=== PATIENT | female | born 1960 | race Native Hawaiian/Other Pacific Islander ===

== ENCOUNTER 2016-12-29 13:26 | Outpatient (CLI) | payer OTHER | END 2016-12-29 19:17 | disposition home or self-care (01) | LOC: RAD 13:26 | DX: M25.511 Pain in right shoulder (principal) ==

== ENCOUNTER 2017-01-15 13:05 | Outpatient (CLI) | payer OTHER | END 2017-01-15 19:12 | disposition home or self-care (01) | LOC: RAD 13:05 | DX: M25.511 Pain in right shoulder (principal) ==

== ENCOUNTER 2017-03-17 18:01 | Emergency (ER) | payer OTHER ==
[~2017-03-17] VITALS: Ht 154.9 cm; Wt 78.9 kg
[2017-03-17 18:11] VITALS: TEMP 97.9
[2017-03-17 20:53] VITALS: BP 132/82
== END 2017-03-17 20:54 | disposition home or self-care (01) ==
LOC: ED 18:01
PROC: 0HQ0XZZ Repair Scalp Skin, External Approach (ICD-10-PCS; principal; 2017-03-17)
DX: S01.01XA Laceration without foreign body of scalp, initial encounter (principal); S09.8XXA Other specified injuries of head, initial encounter; W01.10XA Fall on same level from slipping, tripping and stumbling with subsequent striking against unspecified object, initial encounter; Y92.098 Other place in other non-institutional residence as the place of occurrence of the external cause
CPT/HCPCS: 90715; 96372; 99283

== ENCOUNTER 2017-04-02 14:02 | Outpatient (CLI) | payer OTHER | END 2017-04-02 15:05 | disposition home or self-care (01) | LOC: MRI 14:02 | DX: M48.06 Spinal stenosis, lumbar region (principal); M47.27 Other spondylosis with radiculopathy, lumbosacral region ==

== ENCOUNTER 2017-08-10 16:02 | Outpatient (CLI) | payer OTHER | END 2017-08-10 19:07 | disposition home or self-care (01) | LOC: RAD 16:02 | DX: R07.81 Pleurodynia (principal); M25.511 Pain in right shoulder; M89.8X1 Other specified disorders of bone, shoulder; R07.89 Other chest pain ==

== ENCOUNTER 2017-12-14 10:39 | Outpatient (CLI) | payer OTHER | END 2017-12-14 21:47 | disposition home or self-care (01) | LOC: RAD 10:39 | DX: M25.511 Pain in right shoulder (principal) ==

== ENCOUNTER 2018-02-09 10:39 | Outpatient (CLI) | payer OTHER | END 2018-02-09 18:19 | disposition home or self-care (01) | LOC: MRI 10:39 | DX: M75.121 Complete rotator cuff tear or rupture of right shoulder, not specified as traumatic (principal); M25.511 Pain in right shoulder ==

== ENCOUNTER 2018-08-16 08:20 | Outpatient (CLI) | payer OTHER | END 2018-08-16 22:20 | disposition home or self-care (01) | LOC: MRI 08:20 | DX: M54.12 Radiculopathy, cervical region (principal) ==

== ENCOUNTER 2018-11-16 11:42 | Outpatient (CLI) | payer OTHER | END 2018-11-16 19:26 | disposition home or self-care (01) | LOC: RAD 11:42 | DX: M54.12 Radiculopathy, cervical region (principal) ==

== ENCOUNTER 2019-01-10 16:53 | Outpatient (CLI) | payer OTHER | END 2019-01-10 19:45 | disposition home or self-care (01) | LOC: RAD 16:53 | DX: M47.812 Spondylosis without myelopathy or radiculopathy, cervical region (principal) ==

== ENCOUNTER 2019-11-22 10:34 | Outpatient (CLI) | payer OTHER | END 2019-11-22 19:30 | disposition home or self-care (01) | LOC: MRI 10:34 | DX: M47.812 Spondylosis without myelopathy or radiculopathy, cervical region (principal) ==

== ENCOUNTER 2020-05-07 12:08 | Outpatient (CLI) | payer OTHER | END 2020-05-07 21:29 | disposition home or self-care (01) | LOC: RAD 12:08 | DX: M25.511 Pain in right shoulder (principal) ==

== ENCOUNTER 2020-06-15 10:39 | Outpatient (CLI) | payer OTHER | END 2020-06-15 23:26 | disposition home or self-care (01) | LOC: MRI 10:39 | DX: M25.511 Pain in right shoulder (principal) ==

== ENCOUNTER 2021-06-17 10:29 | Outpatient (CLI) | payer OTHER | END 2021-06-17 20:02 | disposition home or self-care (01) | LOC: RAD 10:29 | PROVIDERS: ATTEND Physician Assistant | DX: M25.511 Pain in right shoulder (principal) ==

== ENCOUNTER 2021-07-29 13:29 | Outpatient (CLI) | payer OTHER | END 2021-07-29 20:26 | disposition home or self-care (01) | LOC: RAD 13:29 | PROVIDERS: ATTEND Physician Assistant | DX: M25.511 Pain in right shoulder (principal) ==

== ENCOUNTER 2021-11-26 13:02 | Outpatient (CLI) | payer OTHER ==
[2021-11-26 13:39] LABS: PLATELET COUNT 175 K/uL (152-353)
[2021-11-26 14:04] LABS: POTASSIUM 3.9 mmol/L (3.6-5.2)
== END 2021-11-26 19:00 | disposition home or self-care (01) ==
LOC: LAB 13:02
PROVIDERS: ATTEND Nurse Practitioner Family
DX: Z00.00 Encounter for general adult medical examination without abnormal findings (principal); Z79.899 Other long term (current) drug therapy; I10 Essential (primary) hypertension; E78.00 Pure hypercholesterolemia, unspecified; R53.83 Other fatigue; M25.50 Pain in unspecified joint; E55.9 Vitamin D deficiency, unspecified
CPT/HCPCS: 80053; 80061; 82306; 84443; 85027; 86038

== ENCOUNTER 2022-02-11 16:44 | Outpatient (CLI) | payer OTHER | END 2022-02-11 19:31 | disposition home or self-care (01) | LOC: LAB 16:44 | PROVIDERS: ATTEND Internal Medicine | DX: N39.0 Urinary tract infection, site not specified (principal) | CPT/HCPCS: 81000; 87077; 87086; 87088; 87186 ==

== ENCOUNTER 2022-05-16 15:18 | Outpatient (CLI) | payer OTHER | END 2022-05-16 21:06 | disposition home or self-care (01) | LOC: LAB 15:18 | PROVIDERS: ATTEND Internal Medicine Endocrinology, Diabetes & Metabolism | DX: L93.0 Discoid lupus erythematosus (principal); R76.8 Other specified abnormal immunological findings in serum | CPT/HCPCS: 36415; 85597; 85598; 85613; 85730; 85732; 86146; 86147; 86148; 86849 ==

== ENCOUNTER 2022-07-10 13:24 | Outpatient (CLI) | payer OTHER | END 2022-07-10 19:17 | disposition home or self-care (01) | LOC: RAD 13:24 | PROVIDERS: ATTEND Nurse Practitioner Family | DX: H16.223 Keratoconjunctivitis sicca, not specified as Sjogren's, bilateral (principal); M06.4 Inflammatory polyarthropathy; R21 Rash and other nonspecific skin eruption; Z68.30 Body mass index [BMI] 30.0-30.9, adult ==

== ENCOUNTER 2022-08-29 08:33 | Outpatient (CLI) | payer OTHER | END 2022-08-29 19:01 | disposition home or self-care (01) | LOC: RAD 08:33 | PROVIDERS: ATTEND Nurse Practitioner Family | DX: H16.223 Keratoconjunctivitis sicca, not specified as Sjogren's, bilateral (principal); M06.4 Inflammatory polyarthropathy; M19.041 Primary osteoarthritis, right hand; M19.042 Primary osteoarthritis, left hand ==

== ENCOUNTER 2022-11-25 08:34 | Outpatient (CLI) | payer OTHER | END 2022-11-25 20:21 | disposition home or self-care (01) | LOC: RAD 08:34 | PROVIDERS: ATTEND Nurse Practitioner Family | DX: E55.9 Vitamin D deficiency, unspecified (principal); M32.8 Other forms of systemic lupus erythematosus; M85.89 Other specified disorders of bone density and structure, multiple sites; Z79.899 Other long term (current) drug therapy ==

== ENCOUNTER 2023-01-19 12:08 | Outpatient (CLI) | payer OTHER | END 2023-01-19 20:41 | LOC: RAD 12:08 | PROVIDERS: ATTEND Internal Medicine Endocrinology, Diabetes & Metabolism | DX: M54.59 Other low back pain (principal); M54.31 Sciatica, right side ==

== ENCOUNTER 2023-01-30 12:15 | Outpatient (CLI) | payer OTHER | END 2023-01-30 19:16 | disposition home or self-care (01) | LOC: MRI 12:15 | PROVIDERS: ATTEND Internal Medicine Endocrinology, Diabetes & Metabolism | DX: M54.40 Lumbago with sciatica, unspecified side (principal) | CPT/HCPCS: 36415; 82565; 84520; A9576 ==

== ENCOUNTER 2023-03-04 19:28 | Outpatient (CLI) | payer OTHER | END 2023-03-04 22:16 | disposition home or self-care (01) | LOC: RAD 19:28 | DX: M54.59 Other low back pain (principal) ==

== ENCOUNTER 2023-04-19 00:02 | Emergency (ER) | payer OTHER ==
[~2023-04-19] VITALS: Ht 154.9 cm; Wt 77.6 kg
[2023-04-19 00:02] VITALS: TEMP 98.5
[2023-04-19 02:45] VITALS: BP 144/83
== END 2023-04-19 02:45 | disposition home or self-care (01) ==
LOC: ED 00:02
DX: M54.16 Radiculopathy, lumbar region (principal); M54.30 Sciatica, unspecified side
CPT/HCPCS: 96372; 99283; J1100; J1170; J1885; J2360

== ENCOUNTER 2023-04-22 17:23 | Emergency (ER) | payer OTHER ==
[~2023-04-22] VITALS: Ht 154.9 cm; Wt 77.1 kg
[2023-04-22 20:30] VITALS: BP 185/94; TEMP 97.7
== END 2023-04-22 20:38 | disposition home or self-care (01) ==
LOC: ED 17:23
DX: M54.50 Low back pain, unspecified (principal); M54.30 Sciatica, unspecified side
CPT/HCPCS: 96372; 99283; J1100; J1885; J2405